=== PATIENT | female | born 1950 | race Hispanic/Latino ===

== ENCOUNTER 2023-05-22 19:03 | Emergency (ER) | payer SELFPAY ==
[2023-05-22 20:16] LABS: Specific Gravity < 1.005 (1.005-1.030); Urine Bacteria <20 /HPF (<20); Urine Bilirubin NEGATIVE (Negative); Urine Blood Negative (Negative); Urine Clarity Clear (Clear); Urine Color Colorless (Yellow); Urine Glucose NEGATIVE (Negative); Urine Protein NEGATIVE (Negative); Urine RBC <5 /HPF (None Seen); Urine Urobilinogen Normal (Normal)
--- NOTE | 2023-05-22 20:37 | RAD REPORT ---
EXAM DESCRIPTION: Rohini Single View05/22/2023 8:29 pm CLINICAL HISTORY: Chest pain/back pain COMPARISON: none FINDINGS: The lungs appear clear of acute infiltrate. The heart is normal size IMPRESSION: No acute abnormalities displayed
--- NOTE | 2023-05-22 21:02 | ER ---
Nurse's Notes [facility] Name: Enma Schreiber Age: 73 yrs Sex: Female : 1950 Arrival Date: 05/22/2023 Time: 19:03 Bed 12 Private MD: Diagnosis: Dysuria;Muscle spasm of back Presentation: 05/22 19:46 Chief complaint: Patient states: pain with urination, back pain. Coronavirus screen: At as6 this time, the client does not indicate any symptoms associated with coronavirus-19. Ebola Screen: No symptoms or risks identified at this time. Initial Sepsis Screen: Does the patient meet any 2 criteria? No. Patient's initial sepsis screen is negative. Does the patient have a suspected source of infection? No. Patient's initial sepsis screen is negative. Risk Assessment: Do you want to hurt yourself or someone else? Patient reports no desire to harm self or others. Onset of symptoms was May 20, 2023. 19:46 Method Of Arrival: Ambulatory as6 19:46 Acuity: HILLARY 4 as6 Triage Assessment: 21:24 General: Appears in no apparent distress. Behavior is calm, cooperative. Pain: kl Complains of pain in back Pain currently is 1 out of 10 on a pain scale. Musculoskeletal: Circulation, motion, and sensation intact. Capillary refill < 3 seconds. Historical: - Allergies: 19:49 No Known Allergies; as6 - PMHx: 19:49 None; as6 - PSHx: 19:49 finger; as6 - Immunization history:: Client reports receiving the 2nd dose of the Covid vaccine. - Social history:: Smoking status: Patient denies any tobacco usage or history of. Screenin:23 [facility] ED Fall Risk Assessment (Adult) History of falling in the last 3 months, kl including since admission No falls in past 3 months (0 pts) Confusion or Disorientation No (0 pts) Intoxicated or Sedated No (0 pts) Impaired Gait No (0 pts) Mobility Assist Device Used No (0 pt) Altered Elimination No (0 pt) Score/Fall Risk Level 0 - 2 = Low Risk Oriented to surroundings, Maintained a safe environment. Abuse screen: Denies threats or abuse. Nutritional screening: No deficits noted. Tuberculosis screening: No symptoms or risk factors identified. Assessment: 21:23 Reassessment: Patient appears in no apparent distress at this time. Vital Signs: 19:46 BP 159 / 89; Pulse 70; Resp 18 S; Temp 97.2(TE); Pulse Ox 98% on R/A; Weight 54.43 kg as6 (R); Height 5 ft. 0 in. (R); Pain 8/10; 21:23 BP 126 / 72; Pulse 81; Resp 16; Pulse Ox 96% ; kl 19:46 Body Mass Index 23.44 (54.43 kg, 152.4 cm) as6 19:46 Pain Scale: Adult as6 ED Course: 19:05 Patient arrived in ED. mr 19:19 Maite Hinkle FNP-C is PHCP. snw 19:19 Kin Tubbs MD is Attending Physician. snw 19:49 Triage completed. as6 19:50 Arm band placed on. as6 20:07 Urine W/Microscopic (UAM) Sent. kl 20:08 Urine Culture Sent. kl 20:30 Chest Single View XRAY In Process Unspecified. EDMS 21:24 No provider procedures requiring assistance completed. Patient did not have IV access kl during this emergency room visit. Administered Medications: 21:10 Drug: Rocephin (cefTRIAXone) IM 1 grams Route: IM; Site: right ventrogluteal; Outcome: 21:02 Discharge ordered by . snw 21:23 Discharged to home ambulatory, with family. kl 21:23 Condition: good 21:23 Discharge instructions given to family, Instructed on discharge instructions, follow up and referral plans. medication usage, Demonstrated understanding of instructions, follow-up care, medications, Prescriptions given X 2. 21:25 Patient left the ED. Signatures: Dispatcher [employer] EDSharlene Maradiaga, RN RN Maite Sherman FNP-C FNP-Jose M Bonita Hayes mr Rajan Morton, AARON RN as6 Corrections: (The following items were deleted from the chart) 19:52 19:46 Acuity: HILLARY 3 as6 as6
--- NOTE | 2023-05-22 21:02 | EDPHYS ---
Physician Documentation [facility] Name: Enma Schreiber Age: 73 yrs Sex: Female : 1950 Arrival Date: 05/22/2023 Time: 19:03 Bed 12 Private MD: ED Physician Kin Tubbs HPI: 05/22 21:15 This 73 yrs old Female presents to ER via Ambulatory with complaints of Fever, snw Back Pain. 21:15 The patient presents with urinary symptoms, dysuria, frequency, urgency. Onset: The snw symptoms/episode began/occurred suddenly, 3 day(s) ago, and became persistent. Associated signs and symptoms: Pertinent positives: fever, urinary frequency. Severity of symptoms: At their worst the symptoms were moderate. The patient has experienced similar episodes in the past, multiple times. no, but started taking PCN from [place]. Historical: - Allergies: 19:49 No Known Allergies; as6 - PMHx: 19:49 None; as6 - PSHx: 19:49 finger; as6 - Immunization history:: Client reports receiving the 2nd dose of the Covid vaccine. - Social history:: Smoking status: Patient denies any tobacco usage or history of. ROS: 21:13 Constitutional: Negative for chills and weight loss, + subjective temperature Eyes: snw Negative for injury, pain, redness, and discharge, ENT: Negative for injury, pain, and discharge, Neck: Negative for injury, pain, and swelling, Cardiovascular: Negative for chest pain, palpitations, and edema, Respiratory: Negative for shortness of breath, cough, wheezing, and pleuritic chest pain, Abdomen/GI: Negative for abdominal pain, nausea, vomiting, diarrhea, and constipation, MS/Extremity: Negative for injury and deformity, Skin: Negative for injury, rash, and discoloration, Neuro: Negative for headache, weakness, numbness, tingling, and seizure, Psych: Negative for depression, anxiety, suicide ideation, homicidal ideation, and hallucinations. 21:13 Back: Positive for pain at rest, pain with movement, of the left scapular area and right scapular area. 21:13 : Positive for urinary symptoms, urinary frequency, small amounts, burning with urination. Exam: 21:12 Constitutional: This is a well developed, well nourished patient who is awake, alert, snw and in no acute distress. Head/Face: Normocephalic, atraumatic. Eyes: Pupils equal round and reactive to light, extra-ocular motions intact. Lids and lashes normal. Conjunctiva and sclera are non-icteric and not injected. Cornea within normal limits. Periorbital areas with no swelling, redness, or edema. ENT: Nares patent. No nasal discharge, no septal abnormalities noted. Tympanic membranes are normal and external auditory canals are clear. Oropharynx with no redness, swelling, or masses, exudates, or evidence of obstruction, uvula midline. Mucous membranes moist. Neck: Trachea midline, no thyromegaly or masses palpated, and no cervical lymphadenopathy. Supple, full range of motion without nuchal rigidity, or vertebral point tenderness. No Meningismus. Chest/axilla: Normal chest wall appearance and motion. Nontender with no deformity. No lesions are appreciated. Cardiovascular: Regular rate and rhythm with a normal S1 and S2. No gallops, murmurs, or rubs. Normal PMI, no JVD. No pulse deficits. Respiratory: Lungs have equal breath sounds bilaterally, clear to auscultation and percussion. No rales, rhonchi or wheezes noted. No increased work of breathing, no retractions or nasal flaring. Abdomen/GI: Soft, non-tender, with normal bowel sounds. No distension or tympany. No guarding or rebound. No evidence of tenderness throughout. Skin: Warm, dry with normal turgor. Normal color with no rashes, no lesions, and no evidence of cellulitis. MS/ Extremity: Pulses equal, no cyanosis. Neurovascular intact. Full, normal range of motion. Neuro: Awake and alert, GCS 15, oriented to person, place, time, and situation. Cranial nerves II-XII grossly intact. Motor strength 5/5 in all extremities. Sensory grossly intact. Cerebellar exam normal. Normal gait. Psych: Awake, alert, with orientation to person, place and time. Behavior, mood, and affect are within normal limits. 21:12 Back: pain, that is mild, that is moderate, of the left scapular area and right scapular area, CVA tenderness, is absent. Vital Signs: 19:46 BP 159 / 89; Pulse 70; Resp 18 S; Temp 97.2(TE); Pulse Ox 98% on R/A; Weight 54.43 kg as6 (R); Height 5 ft. 0 in. (R); Pain 8/10; 21:23 BP 126 / 72; Pulse 81; Resp 16; Pulse Ox 96% ; kl 19:46 Body Mass Index 23.44 (54.43 kg, 152.4 cm) as6 19:46 Pain Scale: Adult as6 MDM: 19:57 Patient medically screened. snw 21:14 Differential diagnosis: viral Infection, bacterial infection, UTI. Data reviewed: vital snw signs, nurses notes, lab test result(s), EKG, radiologic studies. I considered the following discharge prescriptions or medication management in the emergency department Medications were administered in the Emergency Department. See MAR. Historians other than the Patient: Daughter/Son: Daughter. Care significantly affected by the following chronic conditions: denies. Counseling: I had a detailed discussion with the patient and/or guardian regarding the historical points, exam findings, and any diagnostic results supporting the discharge/admit diagnosis, lab results, radiology results, the need for outpatient follow up, for definitive care, to return to the emergency department if symptoms worsen or persist or if there are any questions or concerns that arise at home. Response to treatment: the patient's symptoms have mildly improved after treatment. Special discussion: Based on the history and exam findings, there is no indication for further emergent testing or inpatient evaluation. I discussed with the patient/guardian the need to see the primary care provider for further evaluation of the symptoms. ED course: Pt taking PCN from [place] x 3 days. 05/22 19:19 Order name: Urine W/Microscopic (UAM); Complete Time: 20:24 snw 05/22 20: Order name: Chest Single View XRAY; Complete Time: 20:39 snw 05/22 20:01 Order name: EKG; Complete Time: 20:01 snw 05/22 20:01 Order name: EKG - Nurse/Tech; Complete Time: 21:00 snw EC:15 Rate is 63 beats/min. Rhythm is regular. QRS [place] is Normal. QRS interval is normal. T snw waves are Inverted in lead aVR. Clinical impression: NSR w/ Non-specific ST/T Changes. Administered Medications: 21:10 Drug: Rocephin (cefTRIAXone) IM 1 grams Route: IM; Site: right ventrogluteal; kl Disposition Summary: 05/22/23 21:02 Discharge Ordered Location: Home snw Condition: Stable snw Diagnosis - Dysuria snw - Muscle spasm of back snw Followup: snw - With: Emergency Department - When: As needed - Reason: Worsening of condition Followup: snw - With: Private Physician - When: 2 - 3 days - Reason: Recheck today's complaints, Continuance of care, Re-evaluation by your physician Discharge Instructions: - Discharge Summary Sheet snw - Dysuria snw - Back Injury Prevention snw Forms: - Medication Reconciliation Form snw - Thank You Letter snw - Antibiotic Education snw - Prescription Opioid Use snw - Patient Portal Instructions snw - Leadership Thank You Letter snw Prescriptions: - Cipro 500 mg Oral Tablet - take 1 tablet by ORAL route every 12 hours for 10 days; 20 tablet; Refills: 0, snw Product Selection Permitted - Cyclobenzaprine 5 mg Oral Tablet - take 1 tablet by ORAL route 3 times per day As needed; 15 tablet; Refills: 0, snw Product Selection Permitted Signatures: Dispatcher [employer] Sharlene Andre, Maite Marcum RN, [employer] DEVELOPER-C [employer] DEVELOPER-Ramuw Rajan Morton RN RN as6
[2023-05-22] MEDS ORDERED: LIDOCAINE 1% MPF 2 ML AMPULE ONE (21:21)
[2023-05-22] MEDS ORDERED: CEFTRIAXONE 1000 MG/VIAL ONE (21:21)
[2023-05-22] MEDS ORDERED: DIAZEPAM 2 MG TABLET ONE (21:30)
[2023-05-22 21:32] VITALS: BP 126/72; O2SAT 96
[2023-05-22 21:39] VITALS: TEMP 98.2
--- NOTE | 2023-05-23 15:21 | EKG ---
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
== END 2023-05-22 21:25 | disposition home or self-care (01) ==
LOC: ER 19:03
DX: R30.0 Dysuria (principal); M62.830 Muscle spasm of back; R50.9 Fever, unspecified
CPT/HCPCS: 71045; 81001; 93005; 96372; 99284; J0696